=== PATIENT | female | born 1985 | race African-American/Black ===

== ENCOUNTER 2019-06-05 01:55 | Emergency (ER) | payer OTHER ==
[2019-06-05 03:51] VITALS: TEMP 98.3; BMI 50.7
[2019-06-05] MEDS ORDERED: VALSARTAN 40 MG TABLET (FP) PO ONE (03:58)
--- NOTE | 2019-06-05 04:03 | PDOC ---
History of Present Illness - General Chief Complaint: Blood Pressure Problem Stated Complaint: R/O HIGH BP Time Seen by Provider: 06/05/19 03:57 - History of Present Illness Initial Comments: 06/05/19 03:57 Ms. Haro is a 33 yo female w/ pmh of HTN and preDM who presents for evaluation of "feeling like her pressure is high" although she cannot describe this feeling further. Patient is concerned as she does not have PCP and is taking medications previously proscribed but not updated. Patient otherwise presents as she was accompanying family who were coming in for evaluation. The patient denies chest pain, shortness of breath, headache and dizziness. Denies fever, chills, nausea, vomit, diarrhea and constipation. Denies dysuria, frequency, urgency and hematuria. Past History - Past Medical History Allergies/Adverse Reactions: Allergies Allergy/AdvReac Type Severity Reaction Status Date / Time No Known Allergies Allergy Verified 06/05/19 03:51 Home Medications: Ambulatory Orders Folic Acid 1 tab PO DAILY 06/18/17 Labetalol HCl 1 tab PO BID 06/18/17 Vitamins (Sjr) - 1 tab PO DAILY 06/18/17 Valsartan [Diovan] 40 mg PO DAILY 30 Days #30 tablet 06/05/19 - Suicide/Smoking/Psychosocial Hx Smoking History: Never smoked Information on smoking cessation initiated: No Hx Alcohol Use: No Drug/Substance Use Hx: No Review of Systems - Review of Systems Comments:: 06/05/19 04:01 GENERAL/CONSTITUTIONAL: No fever or chills. No weakness. HEAD, EYES, EARS, NOSE AND THROAT: No change in vision. No ear pain or discharge. No sore throat. CARDIOVASCULAR: No chest pain or shortness of breath RESPIRATORY: No cough, wheezing, or hemoptysis. GASTROINTESTINAL: No nausea, vomiting, diarrhea or constipation. GENITOURINARY: No dysuria, frequency, or change in urination. MUSCULOSKELETAL: No joint or muscle swelling or pain. No neck or back pain. SKIN: No rash NEUROLOGIC: No headache, vertigo, loss of consciousness, or change in strength/ sensation. ENDOCRINE: No increased thirst. No abnormal weight change HEMATOLOGIC/LYMPHATIC: No anemia, easy bleeding, or history of blood clots. ALLERGIC/IMMUNOLOGIC: No hives or skin allergy. *Physical Exam - Vital Signs Last Vital Signs Temp Pulse Resp BP Pulse Ox 98.3 F 89 20 156/97 100 06/05/19 02:00 06/05/19 02:00 06/05/19 02:00 06/05/19 02:00 06/05/19 02:00 - Physical Exam Comments: 06/05/19 04:01 GENERAL: +Patient morbidly obese. Awake, alert, and fully oriented, in no acute distress HEAD: No signs of trauma, normocephalic, atraumatic EYES: PERRLA, EOMI, sclera anicteric, conjunctiva clear ENT: Auricles normal inspection, hearing grossly normal, nares patent, oropharynx clear without exudates. Moist mucosa NECK: Normal ROM, supple, no lymphadenopathy, JVD, or masses LUNGS: No distress, speaks full sentences, clear to auscultation bilaterally HEART: Regular rate and rhythm, normal S1 and S2, no murmurs, rubs or gallops, peripheral pulses normal and equal bilaterally. ABDOMEN: Soft, nontender, normoactive bowel sounds. No guarding, no rebound. No masses EXTREMITIES: Normal inspection, Normal range of motion, no edema. No clubbing or cyanosis. NEUROLOGICAL: Cranial nerves II through XII grossly intact. Normal speech, normal gait, no focal sensorimotor deficits SKIN: Warm, Dry, normal turgor, no rashes or lesions noted. Medical Decision Making - Medical Decision Making 06/05/19 04:02 Patient is a 33 yo female w/ pmh as described who presents for evaluation of elevated BP. Patient BP rechecked and found to be 143/85. Patient otherwise well and asymptomatic. No concern for acute process at this time. Patient BP medication updated and patient given PCP f/u information. Discharging patient to home. *DC/Admit/Observation/Transfer Diagnosis at time of Disposition: High blood pressure Qualifiers: Hypertension type: unspecified Qualified Code(s): I10 - Essential (primary) hypertension - Discharge Dispostion Disposition: HOME Condition at time of disposition: Fair - Referrals Referrals: [facility] [place] [Provider Group] - Patient Instructions Printed Discharge Instructions: DI for High Blood Pressure Additional Instructions: You were evaluated today in the ER for your symptoms. We checked your blood pressure and found it to be 143/85. We have added an anti-hypertensive medication that you may add to your daily medication regimen in place of the lisinopril. We have also provided you with primary care provider information you may use to establish care. Please follow-up using this information within the next week. Return to ER if any fever, chills, pain, or any other concerning symptoms. - Post Discharge Activity
[2019-06-05] MEDS ORDERED: VALSARTAN 80 MG TABLET (UD) ONE (04:21)
--- NOTE | 2019-06-05 04:59 | PDOC ---
Attending Attestation - Resident Resident Name: Manuel Lemaorn - ED Attending Attestation I have performed the following: I have examined & evaluated the patient, The case was reviewed & discussed with the resident, I agree w/resident's findings & plan - HPI HPI: 06/05/19 04:57 Pt comes with HTN; states that she takes amlodipine and lisinopril, but unable to correct BP; she has gained a lot of weight since moving to [place] from [facility] a few months ago. She has no other complaints. Pt lives a sedentary life and shw neither diets nor exercises. - Physicial Exam PE: 06/05/19 04:58 Agree with resident's exam - Medical Decision Making 06/05/19 04:58 Home with fartun. Pt advised to eat more healthfully and to exercise.
[2019-06-05 06:32] VITALS: BP 144/90; PULSE 86
== END 2019-06-05 06:15 | disposition home or self-care (01) ==
LOC: JER 01:55
DX: I10 Essential (primary) hypertension (principal); E66.01 Morbid (severe) obesity due to excess calories; Z68.43 Body mass index [BMI] 50.0-59.9, adult
CPT/HCPCS: 99282-25